=== PATIENT | female | born 1995 | race Two or more races ===

== ENCOUNTER 2020-10-19 02:18 | Emergency (ER) | payer OTHER ==
[~2020-10-19] VITALS: Ht 160 cm; Wt 88.5 kg
[2020-10-19] MEDS ORDERED: DICLOFENAC SODI75 MG PO (04:04)
[2020-10-19] MEDS ORDERED: NORFLEX100MG PO (04:04)
== END 2020-10-19 04:21 | disposition home or self-care (01) ==
LOC: ER 02:18
DX: S00.83XA Contusion of other part of head, initial encounter (principal); S20.221A Contusion of right back wall of thorax, initial encounter; S60.051A Contusion of right little finger without damage to nail, initial encounter; S60.052A Contusion of left little finger without damage to nail, initial encounter; M54.2 Cervicalgia; M54.5 Low back pain; Y04.8XXA Assault by other bodily force, initial encounter; Y93.89 Activity, other specified; Y92.488 Other paved roadways as the place of occurrence of the external cause; Y99.8 Other external cause status